=== PATIENT | male | born 1990 ===

== ENCOUNTER 2017-02-10 18:42 | Inpatient (IN) | payer BC, OTHER ==
[~2017-02-10] VITALS: Ht 182.9 cm; Wt 117.9 kg
--- NOTE | 2017-02-11 00:07 | NUR ---
PRN MAALOX Pt came back from smoke break, c/o heartburn. Administered prn Maalox 30 ml prn PO as ordered. Will continue to monitor Addendum: 02/12/17 at 0610 by PEEWEE JIMÉNEZ RN wrong date; intended to be 02/12/17
--- NOTE | 2017-02-11 16:40 | NUR ---
Admission note Pt was admitted to [facility] and given tour by staff. Pt oriented to unit. VS were as follows: BP: 142/90 HR: 83 T: 98.2 R: 16 SpO2: 98% on RA. Pain 10/10 generalized body aches. COWS 15, CIWA 17. Pt unable to provide urine. Pt has NKDA, full code, regular diet. Pt states that he has a PMH of seizures with withdrawal, anxiety, severe depression, pt states that he has been told that he has high blood pressure and is a prediabetic, but does not have any medical treatment. Pt states that he has suicidal thoughts and was placed on a 1:1 for safety, denies having an active plan at this time. Pt states that he has had 10-20 seizures from withdrawal. Pt states that he takes lyrica 200mg PO BID, last taken this morning, and zoloft 200mg PO daily, last taken this morning. Pt uses the following substances: smokes cigarettes-1/2-1 pack a day since the age of 14. Xanax- 20-80mg PO daily since the age of 11, last took 10mg at 0100 today. Heroin- 1-2 G daily, via IV or snorting, been using since the age of 19, last use was 0.5G today at 0100. Fentanyl- uses a 50 or 75mcg patch, smokes it when its available, has been using them since the for "about a year", last use "about a month ago" W18- "the strongest opiate there is"- takes 1 pill PO when its available, last use was about 3 weeks ago, has been using them for about a year. oxycodone- has been using them since he was in 6th grade "when available" takes 1-2 tabs of 80mg tabs, last use was 1 month ago. percocet- has been using them since he was in 6th grade "when available", last used 02/10/17 -1 5mg tab. Marijuana- smokes "an 8 ball daily" since the age of 11. Pt states that he does not want the flu/pna shot. Consented to the HIV test. States his PCP is Dr Thom Donnelly in his home town in [place]. Pt states that he was at [facility] for 60 days, but was only sober for 43 of the days, and relapsed immediately upon discharge from the facility. Pt states that he started the program in August 2016. Dr Smith is aware of the pt's admission, COWS/CIWA scores and states he will place the pt on a subutex and phenobarbital taper. Dr Dodd is aware of the pt's SI, NNO at this time. Will continue to monitor the pt and administer medication as ordered.
[2017-02-11] MEDS ORDERED: PREG200C PO (17:30)
[2017-02-11] MEDS ORDERED: diphenhydrAMINE 50 MG CAPSULE PO PRN (17:30)
[2017-02-11] MEDS ORDERED: MIRALAX 17 GM POWD.PACK PO PRN (17:30)
[2017-02-11] MEDS ORDERED: SERT100T PO (17:30)
[2017-02-11] MEDS ORDERED: DICYCLOMINE HCL 20 MG TABLET PO PRN (17:30)
[2017-02-11] MEDS ORDERED: MAGNESIUM HYDROXIDE 30 ML LIQUID UDC PO PRN (17:30)
[2017-02-11] MEDS ORDERED: DIAZEPAM 10 MG TABLET PO PRN ×2 (17:30)
[2017-02-11] MEDS ORDERED: PROMETHAZINE HCL 25 MG/1 ML VIAL IM PRN (17:30)
[2017-02-11] MEDS ORDERED: LOPERAMIDE HCL 2 MG CAPSULE PO PRN ×2 (17:30)
[2017-02-11] MEDS ORDERED: LORAZEPAM 2 MG/1 ML VIAL IM PRN (17:30)
[2017-02-11] MEDS ORDERED: ACETAMINOPHEN 325 MG TABLET PO PRN (17:30)
[2017-02-11 17:35] VITALS: BP 142/95
[2017-02-11 18:33] LABS: BASOPHILS # (AUTO) 0.1 K/uL (0.0-0.2); BASOPHILS % (AUTO) 0.7 % (0.0-2.0); EOSINOPHILS # (AUTO) 0.1 K/uL (0.0-0.7); EOSINOPHILS % (AUTO) 1.2 % (0.0-7.0); HEMATOCRIT 46.7 % (40.0-50.0); HEMOGLOBIN 15.2 g/dL (14.0-18.0); LYMPHOCYTES # (AUTO) 3.7 K/uL (0.8-4.8); LYMPHOCYTES % (AUTO) 32.7 % (20.5-51.5); MEAN CORPUSCULAR HEMOGLOBIN 27.5 uug (27.0-31.0); MEAN CORPUSCULAR HGB CONC 33 g/dL (32.0-37.0); MEAN CORPUSCULAR VOLUME 84.5 fL (82.0-92.0); MONOCYTES # (AUTO) 0.7 K/uL (0.1-1.30); MONOCYTES % (AUTO) 5.9 % (0.0-11.0); NEUTROPHILS # (AUTO) 6.6 K/uL (1.8-8.9); NEUTROPHILS % (AUTO) 59.5 % (38.5-71.5); PLATELET COUNT (AUTO) 304 K/uL (150-450); RED BLOOD CELL COUNT(AUTO) 5.53 MIL/uL (4.70-6.10); WHITE BLOOD COUNT (AUTO) 11.2 K/uL (4.0-11.2)
[2017-02-11 18:35] LABS: ETHANOL < 3 MG/DL (0-0)
[2017-02-11 18:39] LABS: ALANINE AMINOTRANSFERASE 44 U/L (16-63); ALBUMIN 4.3 g/dL (3.4-5.0); ALKALINE PHOSPHATASE 82 U/L (50-136); ASPARTATE AMINOTRANSFERASE 21 U/L (15-37); BILIRUBIN,TOTAL 0.4 mg/dL (0.2-1.0); CALCIUM 9.7 mg/dL (8.5-10.1); CARBON DIOXIDE 30 mmol/L (21-32); CHLORIDE 100 mmol/L (98-107); CREATININE 1.3 mg/dL (0.6-1.3); GFR 68 mL/min (>60); GLUCOSE 136 mg/dL (74-106); MAGNESIUM 1.8 mg/dL (1.8-2.4); POTASSIUM 3.6 mmol/L (3.5-5.1); SODIUM SERUM 141 mmol/L (136-145); TOTAL PROTEIN, SERUM 8.1 g/dL (6.4-8.2); UREA NITROGEN, BLOOD 14 mg/dL (7-18)
[2017-02-11] MEDS ORDERED: KETOROLAC TROMETHAMINE 30 MG INJ IM PRN (18:45)
[2017-02-11 18:48] LABS: THYROID STIMULATING HORMONE 0.504 mIU/mL (0.358-3.740)
[2017-02-11] MEDS ORDERED: PHENOBARBITAL 60 MG TABLET PO SCH ×2 (19:00)
[2017-02-11] MEDS ORDERED: PHENOBARBITAL 32.4 MG TABLET PO ONE (19:00)
[2017-02-11] MEDS: BUPRENORPHINE HCL 2 MG TAB.SUBL SL PRN (19:06)
--- NOTE | 2017-02-11 19:09 | NUR ---
End of shift note Pt was admitted for opiate and benzo dependence. Pt has a PMH of seizures from withdrawal, depression and SI. Pt is full code, regular diet, continues on 1:1 for SI. Pt started on phenobarb taper, given PRN subutex for COWS of 15. 1:1 sitter at bedside. Pt was able to provide urine for UDS, and urine was sent down. Pt is comfortable at this time. Has no complaints. SBAR report given to night stocker nurse. All needs addressed at this time.
--- NOTE | 2017-02-11 19:30 | NUR ---
START OF SHIFT NOTE Received report from day shift nurse. Pt is 26 y o male, admitted on 02/11/17 for BZO (xanax 20-80 mg PO daily), Opioids (heroin 1-2 g daily). Pt also reported taking fentanyl 50-75 mg, w18 - 1 tab, oxycodone 80 mg, and percocet unknown dose - all whenever available. Pt placed on Phenobarbital taper started 02/11/17; prn Subutex and valium also available based on withdrawal s/s. Pt in bed, aaox4. Pt reports anxiety, but able to sit still, reports chills, stomach cramps, skin warm with minimal sweat; pt reports body aches 4/10 at this time; noted increased tearing. Pupils PERRLA 5 mm bilat. Skin intact. No tremors noted; pt reports minimal tingling in fingers bilat; radial pulses strong bilat, cap refill <3 sec. Per day shift nurse, pt just received Phenobarbital an Subutex, will re-evaluate in 40 min. Lung sounds clear, heart rate regular. Bowel sounds active x 4, pt denies n/v. Pt denies urinary problems. PMH of depression, withdrawal seizures. Pt on fall and seizure precautions. Side rails up x 2, bed locked in lowest position, call light within reach. D/t depression, pt verbalizes "I am not satisfied with my life", pt reports dissatisfaction with his life and unwillingness to continue to live; denies active suicidal thoughts; pt denies having a plan to end his life. Pt is on 1:1 for safety. Will continue with plan of care.
[2017-02-11 20:00] VITALS: BP 131/78
[2017-02-11 20:27] LABS: *AMPHETAMINE, URINE NEGATIVE (NEGATIVE); *BARBITURATE, URINE NEGATIVE (NEGATIVE); *CANNABINOID, URINE POSITIVE (NEGATIVE); *COCCAINE, URINE NEGATIVE (NEGATIVE); *OPIATE, URINE POSITIVE (NEGATIVE); *PHENCYCLIDINE SCREEN,URINE NEGATIVE (NEGATIVE)
[2017-02-11] MEDS ORDERED: GABAPENTIN 300 MG CAPSULE PO SCH (21:00)
[2017-02-11 21:42] LABS: HIV-1 p24 ANTIGEN NON REACTIVE (NONREACTIVE); HIV-1/2 ANTIBODY NON REACTIVE (NONREACTIVE)
[2017-02-11] MEDS: ONDANSETRON ODT 4 MG TAB.RAPDIS SL PRN (22:13)
--- NOTE | 2017-02-11 22:13 | NUR ---
PRN Zofran Pt c/o nausea and requested for PRN Zofran. Medication given and tolerated well. Will reassess within 1 HR. Will continue to monitor.
--- NOTE | 2017-02-11 23:00 | NUR ---
REASSESSMENT Pt reports nausea subsided
[2017-02-11] MEDS: DIAZEPAM 5 MG TABLET PO PRN (23:46)
--- NOTE | 2017-02-11 23:46 | NUR ---
PRN VALIUM 5 MG Pt c/o anxiety, noted moderate sweat; pt c/o minimal body aches, reports mild tingling of extremities. CIWA =7, COWS = 7. Administered prn Valium 5 mg PO prn as ordered. Safety precautions in place; will continue to monitor
[2017-02-12] VITALS: BP 125/80
[2017-02-12] MEDS: MAG HYDROX/AL HYDROX/SIMETH 30 ML LIQUID UDC PO PRN ×2 (00:07→21:31)
--- NOTE | 2017-02-12 00:07 | NUR ---
PRN MAALOX Pt came back from smoke break, c/o heartburn. Administered prn Maalox 30 ml prn PO as ordered. Will continue to monitor
--- NOTE | 2017-02-12 00:45 | NUR ---
REASSESSMENT Pt in bed, reports anxiety is still present, but very mild; pt denies tingling, no tremors present; reports 2/10 body aches; deneis stomach discomfort/ heartburn. COWS 5, CIWA 3
[2017-02-12] MEDS: METHOCARBAMOL 750 MG TABLET PO PRN ×2 (03:41→17:17)
[2017-02-12] MEDS: DIAZEPAM 5 MG TABLET PO PRN (03:41)
--- NOTE | 2017-02-12 03:41 | NUR ---
PRN VALIUM AND ROBAXIN Pt c/o anxiety, tingling, sweats, chills, body aches 05/07. COWS =9, CIWA = 6; administered prn Valium 5 mg PO and Robaxin 750 mg prn PO for body aches. Fall and seizure precautions in place, will continue to monitor
[2017-02-12 04:00] VITALS: BP 117/70
--- NOTE | 2017-02-12 04:30 | NUR ---
REASSESSMENT Pt in bed, awaiting for RT. Pt reports "minimal" anxiety, reports body aches decreased to 1/10; no tingling reported, mild sweating still present. COWS 4, CIWA 3. Will continue to monitor
--- NOTE | 2017-02-12 04:49 | NUR ---
PT CALLING FOR USE OF CPAP MACHINE @ 04:10 , SET / UP WITH PT LEAK TEST,DONE; PT ON ROOM AIR, SETTINGS, CPAP 4CM, RR12, SPONT. VT 545ML, APPROX. WITH FULL MASK IN PLACE, ALL ALARMS OK AND SET, PT DOING WELL AT THIS TIME. Tyler BOYD RCP Addendum: 02/12/17 at 0452 by DIANN BOYD RT Amended: Links added.
--- NOTE | 2017-02-12 07:30 | NUR ---
START OF SHIFT Pt 26 y/o male admitted for benzo and opiate dependence. Pt received in room with eyes closed resting, but easily arousable to name. Perrla. Skin warm and slightly moist to touch. Respirations even and unlabored. Pt with sitter 1:1 for safety. It was reported that pt slept for 6 hours last night. Pt will start a 7 day phenobarb taper today. Bed on lowest position with side rails x 2 up for safety. Call light within reach. No distress noted at this time.
--- NOTE | 2017-02-12 07:34 | NUR ---
END OF SHIFT NOTE Pt is 26 y o male, admitted on 02/11/17 for BZO (xanax 20-80 mg PO daily), Opioids (heroin 1-2 g daily). Pt also reported taking fentanyl 50-75 mg, w18 - 1 tab, oxycodone 80 mg, and percocet unknown dose - all whenever available. Pt placed on Phenobarbital taper started 02/11/17; prn Subutex and valium also available based on withdrawal s/s. Pt withdrawal s/s included chills, tearing, dilated pupils, stomach cramps, nausea, anxiety. PRN meds were given and documented in separate notes; withdrawal s/s were managed with prn Valium 5 mg given x 2, both times was effective: CIWA scores decreased, as documented in corresponding notes. Pt received Zofran for nausea and Maalox for heartburn, both were effective; received Robaxin for muscle aches . Pt has CPAP machine for nighttime. VSS. Last COWS 4, CIWA 3 at 0430 after Valium and Robaxin administration. PMH of depression, withdrawal seizures. Pt on fall and seizure precautions. Pt is on 1:1 for suicidal precautions, no active suicidal ideations verbalized throughout the shift. Pt sleeping, RR unlabored. Report endorsed to day shift.
[2017-02-12 08:00] VITALS: BP 113/57
[2017-02-12] MEDS ORDERED: PHENOBARBITAL 60 MG TABLET PO SCH (09:00)
[2017-02-12] MEDS ORDERED: TUBERCULIN,PURIF.PROT.DERIV. 5 TU/0.1 ML TEST ID ONE (09:00)
[2017-02-12] MEDS: MULTIVITAMINS,THERAPEUTIC TABLET PO SCH (10:09)
[2017-02-12] MEDS: PHENOBARBITAL 32.4 MG TABLET PO SCH ×4 (10:10→20:19)
[2017-02-12] MEDS: PREGABALIN 100 MG CAPSULE PO SCH ×2 (10:10→17:17)
[2017-02-12] MEDS: PHENOBARBITAL 60 MG TABLET PO SCH ×4 (10:10→20:19)
[2017-02-12] MEDS: BUPRENORPHINE HCL 2 MG TAB.SUBL SL PRN (10:22)
[2017-02-12 12:00] VITALS: BP 113/57
[2017-02-12] MEDS ORDERED: PHENOBARBITAL 60 MG TABLET PO ONE (13:00)
[2017-02-12] MEDS: BUPRENORPHINE HCL 2 MG TAB.SUBL SL SCH ×3 (13:33→20:20)
--- NOTE | 2017-02-12 15:00 | NUR ---
NSG ENTRY Pt denies any SI when asked.
[2017-02-12 16:00] VITALS: BP 131/88
[2017-02-12] MEDS: SERTRALINE HCL 100 MG TABLET PO SCH ×2 (16:07→20:19)
[2017-02-12] MEDS: ONDANSETRON ODT 4 MG TAB.RAPDIS SL PRN (16:14)
--- NOTE | 2017-02-12 16:15 | NUR ---
PRN Pt with c/o nausea. Zofran po prn per MD order given and tolerated well.
--- NOTE | 2017-02-12 17:17 | NUR ---
PRN Pt with c/o body aches 6/10 generalized. Robaxin po prn per MD order given and tolerated well.
[2017-02-12] MEDS ORDERED: DIAZEPAM 10 MG TABLET PO PRN ×2 (17:45)
[2017-02-12] MEDS ORDERED: DIAZEPAM 5 MG TABLET PO PRN (17:45)
--- NOTE | 2017-02-12 18:43 | NUR ---
END OF SHIFT Pt 26 y/o male admitted for benzo/ opiate dependence. Pt alert and oriented to name, place, and time. Perrla. Skin warm and moist to touch. Respirations even and unlabored. Bilateral hand tremors noted. Pt appears flushed at times throughout the day. Pt was seen by Dr. Smith today. Pt medication compliant and tolerated well. No ASE noted. Bed on lowest position with side rails x2 up for safety. Call light within reach. No distress noted at this time.
--- NOTE | 2017-02-12 19:10 | NUR ---
Start of Shift Patient Received. Patient is in his room, sleeping but easily arousable to verbal stimuli. Breathing even and non labored. No signs of pain or discomfort noted. Patient is a 26 year old male, admitted on 02/11/17 for Benzo and Opiate Dependence, under the care of Dr. Smith. Patient is currently receiving a 7 day Phenobarbital and 5 day Subutex taper. Patient verbalizes no known allergies, wishes to be full code, following a regular diet, skin intact, placed on fall and seizure precautions. Past Medical History of Surgery to right shoulder x3, Depression, Seizure from withdrawal. Patient continues on CPAP and tolerating well. Per endorsement, patient was given PRN Robaxin, Zofran, and Phenobarbital 30mg x1. Last COWS noted 10. Last CIWA noted 10. Patient was removed from 1:1 for suicidal Ideals. Patient currently denies suicidal ideations. All needs attended to promptly. Will continue plan of care as ordered.
[2017-02-12 20:06] VITALS: BP 129/82
[2017-02-12] MEDS: QUETIAPINE FUMARATE 25 MG TABLET PO SCH (20:20)
[2017-02-12] MEDS ORDERED: QUETIAPINE FUMARATE 25 MG TABLET ONE (20:26)
--- NOTE | 2017-02-12 21:35 | NUR ---
PRN Medication Administration Patient verbalized increase heart burn. PRN Mylanta administered. Patient able to tolerate well. Will continue to monitor for effectiveness.
[2017-02-13] VITALS (7 sets, daily range): BP systolic 124–143; BP diastolic 72–94
--- NOTE | 2017-02-13 07:07 | NUR ---
End of Shift Patient is in his room, sleeping but easily arousable to verbal stimuli. Breathing even and non labored. No signs of pain or discomfort noted. Patient is a 26 year old male, admitted on 02/11/17 for Benzo and Opiate Dependence, under the care of Dr. Smith. Patient is currently receiving a 7 day Phenobarbital and 5 day Subutex taper. Patient verbalizes no known allergies, wishes to be full code, following a regular diet, skin intact, placed on fall and seizure precautions. Past Medical History of Surgery to right shoulder x3, Depression, Seizure from withdrawal. Patient continues on CPAP and tolerating well. Patient was given PRN Mylanta for heartburn and medication noted to be effective. Patient currently denies suicidal ideations. Last COWS noted at 3 and last CIWA noted at 2. All needs attended to promptly. Will endorse continue plan of care as ordered.
--- NOTE | 2017-02-13 07:30 | NUR ---
START OF SHIFT NOTE Received report from night nurse, 26 year old male, admitted on 02/11/17 for Benzo and Opiate Dependence. NKA/Regular diet/Full code. Patient cont with 7 day Phenobarbital and 5 day Subutex taper. Past Medical History of Surgery to right shoulder x3, Depression, Seizure from withdrawal. Pt continues on CPAP and tolerating well. Per endorsement pt received PRN Mylanta for heartburn effective. Last COWS-3, CIWA-2. Slept for 6 hours. Received pt in his room sleeping in stable condition, responsive to verbal and tactile stimuli. CPAP intact no s/s of desaturation noted. Safety measures in place, call light within reach. Will cont to monitor.
[2017-02-13] MEDS: PREGABALIN 100 MG CAPSULE PO SCH ×2 (08:50→20:41)
[2017-02-13] MEDS: SERTRALINE HCL 100 MG TABLET PO SCH ×2 (08:50→20:42)
[2017-02-13] MEDS: PHENOBARBITAL 60 MG TABLET PO SCH ×4 (08:50→20:41)
[2017-02-13] MEDS: MULTIVITAMINS,THERAPEUTIC TABLET PO SCH (08:50)
[2017-02-13] MEDS: BUPRENORPHINE HCL 2 MG TAB.SUBL SL SCH ×4 (08:55→20:42)
--- NOTE | 2017-02-13 12:50 | NUR ---
PT AT THIS TIME IS SLEEPING IN BED PER RN REQUEST PLACE PT ON CPAP. PT AT THIS TIME WAS WOKEN UP TO PLACE ON CPAP, PT REFUSED CPAP AT THIS TIME DUE TO DRY MOUTH AND THROAT. PT KEEP FALLING IN AND AOUT OF SLEEP SPO2 ON ROOM AIR <91%. PER RN PT WAS PLACE ON NC 3LPM VIA NC. PT AT THIS TIME IS TOLERATING WELL SPO2 97% AND REMAINS SLEEPING WITH NO DISTRESS. RN WILL MONITOR PT SPO2. RT WILL CONTINUE TO MONITOR PT THROUGHOUT SHIFT. RT INFORMED RN REGARDING O2 INITIAL ORDER.
[2017-02-13] MEDS ORDERED: DIAZEPAM 10 MG TABLET PO PRN ×2 (13:15)
[2017-02-13] MEDS ORDERED: DIAZEPAM 5 MG TABLET PO PRN (13:15)
--- NOTE | 2017-02-13 19:05 | NUR ---
Start of Shift Patient Received. Patient is in his room, sleeping but easily arousable to verbal stimuli. Breathing even and non labored. No signs of pain or discomfort noted. Patient is a 26 year old male, admited on 02/11/17 for Benzo and Opiate Dependence, under the care of Dr. Smith. Patient is currently receiving a 7 day Phenobarbital and 5 day Subutex taper. Patient verbalizes no known allergies, wishes to be full code, following a regular diet, skin intact, placed on fall and seizure precautions. Past Medical History of Surgery to right shoulder x3, Depression, Seizure from withdrawal. Patient continues on CPAP and tolerating well. Per endorsement, Patient was noted with an episode of desaturation while sleeping. New order of O2 via Nasal Canula at 3 liters. No PRN Medications administered. COWS noted to be 5 and CIWA noted to be 4. Patient currently denies suicidal ideations. All needs attended to promptly. Will continue plan of care as ordered.
--- NOTE | 2017-02-13 19:13 | NUR ---
END OF SHIFT NOTE Gave report to night 26 year old male, admitted on 02/11/17 for Benzo and Opiate Dependence. NKA/Regular diet/Full code. Patient cont with 7 day Phenobarbital and 5 day Subutex taper. Past Medical History of Surgery to right shoulder x3, Depression, Seizure from withdrawal. Pt continues on CPAP and tolerating well. During shift pt did not receive any PRN medication. Vital signs remained stable. Pt's total intake 2572ml, voided x3, with x1 BM. Safety measures in place, call light within reach. Pt endorse to night nurse in stable condition.
--- NOTE | 2017-02-13 20:00 | NUR ---
MD Communication/New Orders Patient is noted in bed sleeping. Nasal Cannula noted to be taken off by patient. Vitals rendered and Oxygen noted to be 89% on Room air. Patient noted with order to be placed CPAP while sleeping during the day. Clarified ordered with MD with New order for Oxygen 2liters via NC. Patient placed on Oxygen and tolerating well. O2 Saturation noted at 95% and patient tolerating well. Will continue to monitor.
[2017-02-13] MEDS: PREGABALIN 25 MG CAPSULE PO SCH (20:41)
[2017-02-13] MEDS: QUETIAPINE FUMARATE 25 MG TABLET PO SCH (20:42)
[2017-02-13] MEDS ORDERED: PREGABALIN 100 MG CAPSULE PO SCH (21:00)
[2017-02-13] MEDS: METHOCARBAMOL 750 MG TABLET PO PRN (23:45)
[2017-02-13] MEDS: CLONIDINE HCL 0.1 MG TABLET PO PRN (23:45)
--- NOTE | 2017-02-13 23:45 | NUR ---
PRN Medication Administration Patient verbalizing increased anxiety, agitation, and back spasms. PRN Clonidine and Robaxin administered. Will continue to monitor.
--- NOTE | 2017-02-14 | NUR ---
placed patient on cpap 4 fio2 35% . pt tolerating current settings at this time. pt leak 8. alarms working well and audible.no distress noted at this time. spo2 98% . will continue to monitor.
[2017-02-14 00:49] VITALS: BP 129/87
[2017-02-14 04:03] VITALS: BP 127/91
--- NOTE | 2017-02-14 07:15 | NUR ---
End of Shift Patient is in his room, awake, alert and verbally responsive. Breathing even and non labored. No signs of pain or discomfort noted. Patient is a 26 year old male, admitted on 02/11/17 for Benzo and Opiate Dependence, under the care of Dr. Smith. Patient is currently receiving a 7 day Phenobarbital and 5 day Subutex taper. Patient verbalizes no known allergies, wishes to be full code, following a regular diet, skin intact, placed on fall and seizure precautions. Past Medical History of Surgery to right shoulder x3, Depression, Seizure from withdrawal. Patient tolerated CPAP well throughout the night. Patient was given PRN Robaxin and Clonidine 0.1mg and medication noted to be effective. Patient currently denies suicidal ideations. Last COWS noted at 2 and last CIWA noted at 0. All needs attended to promptly. Will endorse continue plan of care as ordered.
--- NOTE | 2017-02-14 07:16 | NUR ---
Start Of Shift Patient is a 26 year old male, admitted on 02/11/17 for Benzo and Opiate Dependence. Pt is full code regular diet on fall and seizure precautions, denies any food or drug allergies. Patient is currently receiving a 7 day Phenobarbital and 5 day Subutex taper tolerating well. Skin intact. Past Medical History of Surgery to right shoulder x3, Depression, Seizure d/t withdrawal. Patient is on CPAP during nights and O2 2L/min via NC during the day for SPO2 less than 90%. Patient was given PRN Robaxin 750mg and Clonidine 0.1mg which were effective per adjustment clerk nurse. Patient currently denies suicidal ideations. Last COWS was a 2 and last CIWA was a 0 taken at 1999. Pt slept a total of 7 hours last night. All safety measures in place, call light within reach, bed in lowest locked position, will continue to monitor and provide support.
[2017-02-14 08:00] VITALS: BP 139/76
[2017-02-14] MEDS ORDERED: BUPRENORPHINE HCL 2 MG TAB.SUBL SL SCH (09:00)
[2017-02-14] MEDS: PHENOBARBITAL 60 MG TABLET PO SCH ×3 (09:25→21:00)
[2017-02-14] MEDS: SERTRALINE HCL 100 MG TABLET PO SCH ×2 (09:25→23:51)
[2017-02-14] MEDS: PREGABALIN 25 MG CAPSULE PO SCH ×2 (09:25→23:51)
[2017-02-14] MEDS: MULTIVITAMINS,THERAPEUTIC TABLET PO SCH (09:26)
[2017-02-14] MEDS: PREGABALIN 100 MG CAPSULE PO SCH ×2 (09:26→23:51)
[2017-02-14] MEDS ORDERED: BACLOFEN 10 MG TABLET PO PRN (11:15)
[2017-02-14] MEDS: HYDROXYZINE PAMOATE 25 MG CAPSULE PO PRN (11:57)
--- NOTE | 2017-02-14 11:57 | NUR ---
PRN MEDICATION Pt c/o Anxiety presented with agitation and restlessness pt also complained of generalized muscle pain rating it 4/10 requested something for relief, non-pharmacological techniques interventions provided x3 and were not effective. PRN Vistaril 50mg, and Baclofen 10mg administered PO, educated pt about s/e of medication and when to contact nurse. all needs met, all safety measures in place, will continue to monitor.
[2017-02-14 12:00] VITALS: BP 136/78
--- NOTE | 2017-02-14 12:57 | NUR ---
PRN REASSESSMENT Medication effective pt reported a decrease in pain to 3/10 and decreased anxiety. all needs met, all safety measures in place will continue to monitor.
[2017-02-14] MEDS: DICYCLOMINE HCL 20 MG TABLET PO SCH ×2 (15:14→23:51)
[2017-02-14] MEDS: BUPRENORPHINE HCL 2 MG TAB.SUBL SL SCH ×2 (15:15→21:00)
[2017-02-14 16:00] VITALS: BP 131/79
--- NOTE | 2017-02-14 19:13 | NUR ---
End Of Shift Patient is a 26 year old male, admitted on 02/11/17 for Benzo and Opiate Dependence. Pt is full code regular diet on fall and seizure precautions, denies any food or drug allergies. Patient is currently receiving a 7 day Phenobarbital and 5 day Subutex taper tolerating well. Skin intact. Past Medical History of Surgery to right shoulder x3, Depression, Seizure d/t withdrawal. Patient is on CPAP during nights and O2 2L/min via NC during the day for SPO2 less than 90%. Patient was given PRN Baclofen 10mg and Vistaril 50mg which were effective. Patient currently denies suicidal ideations. Last COWS was a 5 and last CIWA was a 3 taken at 1600. Pt participated in some activities and groups. Pt stated that the medications are working well at controlling the withdrawal symptoms, evidenced by low assessment scores during the day ranging from 7-5 and 5-3. Pt ate all of his meals. Pt remains compliant with the treatment plan. Pts vital signs within normal limits, A/Ox4, denies chest pain. Respirations even unlabored, lungs clear upon auscultation abdomen soft and non- distended. Pt denies nausea, vomiting and diarrhea. Pt total fluid intake was 2250ml with 2 voids and 1 stool. Safety measures in place, call light within reach. All pertinent information discussed with operation shift supervisor, endorsement given to operation shift supervisor nurse.
[2017-02-14] MEDS ORDERED: BUPRENORPHINE HCL 2 MG TAB.SUBL SL ONE (20:00)
[2017-02-14 20:01] VITALS: BP 118/72
--- NOTE | 2017-02-14 22:00 | NUR ---
Scheduled Subutex and Phenobarbital Held for sleep Scheduled 4mg Subutex and 60mg Phenobarbital Held for sleep. Pt is resting well in bed with no s/s of distress noted at this time. Respirations even and unlabored. Will continue to monitor.
[2017-02-14] MEDS: QUETIAPINE FUMARATE 25 MG TABLET PO SCH (23:50)
--- NOTE | 2017-02-15 00:08 | NUR ---
One time orders of 4mg Subutex and 60mg phenobarbital administration Pt woke up and presenting with COWS: 10 and CIWA: 8. One time orders obtained from Dr. Salazar for 4mg Subutex and 60mg Phenobarbital. Medications given and tolerated well. Will Reassess within 1 HR. Will continue to monitor.
[2017-02-15] MEDS ORDERED: BUPRENORPHINE HCL 2 MG TAB.SUBL SL ONE ×2 (00:14→00:15)
[2017-02-15] MEDS ORDERED: PHENOBARBITAL 60 MG TABLET PO ONE (00:15)
[2017-02-15] MEDS ORDERED: PHENOBARBITAL 60 MG TABLET ONE (00:15)
[2017-02-15 00:31] VITALS: BP 124/80
--- NOTE | 2017-02-15 01:05 | NUR ---
One time Subutex and Phenobarbital Reassessment Medications effective. No s/s of ASE/distress noted at this time. Respirations even and unlabored. Will continue to monitor.
[2017-02-15 04:23] LABS: HCV AB <0.1 s/co ratio (0.0-0.9); HEPATITIS B CORE AB, IgM Negative (Negative); HEPATITIS B SURFACE AG Negative (Negative)
--- NOTE | 2017-02-15 04:28 | NUR ---
V/S, COWS, and CIWA Refused V/S, COWS, and CIWA Refused. No s/s of distress noted at this time. Respirations even and unlabored. Will continue to monitor.
--- NOTE | 2017-02-15 06:52 | NUR ---
End of shift note Pt is a 26 yo male, A+Ox4, presenting to [facility] for Benzo/Opiate dependence. Pt has NKA, is Full Code status, and is on Regular diet. Pt is on Fall and Seizure precautions. Pt has HX of Right shoulder SX, depression, and Seizure. Pt is on 7 day Phenobarbital taper and 5 day Subutex taper, tolerated well. Pt slept for a total of 8 HRS. Last COWS: 10 and Last CIWA: 8 @0000. No s/s of distress noted at this time. Respirations even and unlabored. Will endorse to day shift nurse.
--- NOTE | 2017-02-15 07:30 | NUR ---
Start of shift note; Received report from night nurse. Patient is a 26 year old male, admitted on 02/11/17 for Benzo and Opiate Dependence. Pt is full code regular diet on fall and seizure precautions, denies any food or drug allergies. Patient is currently receiving a 7 day Phenobarbital and 5 day Subutex taper tolerating well. Skin intact. Patient reported Past Medical History of Surgery to right shoulder x3, Depression, Seizure d/t withdrawal. Patient is on CPAP during nights and O2 2L/min via NC during the day for SPO2 less than 90%. Patient denies suicidal ideations. Last COWS was a 10 and last CIWA was a 8. Pt slept a total of 8 hours last night. All safety measures in place, call light within reach, bed in lowest locked position, will continue to monitor patient.
[2017-02-15 08:00] VITALS: BP 121/88
[2017-02-15] MEDS: SERTRALINE HCL 100 MG TABLET PO SCH ×2 (08:41→21:03)
[2017-02-15] MEDS: PHENOBARBITAL 60 MG TABLET PO SCH ×4 (08:41→21:03)
[2017-02-15] MEDS: PREGABALIN 100 MG CAPSULE PO SCH ×2 (08:41→21:03)
[2017-02-15] MEDS: PREGABALIN 25 MG CAPSULE PO SCH ×2 (08:41→21:03)
[2017-02-15] MEDS: DICYCLOMINE HCL 20 MG TABLET PO SCH ×3 (08:42→21:02)
[2017-02-15] MEDS: MULTIVITAMINS,THERAPEUTIC TABLET PO SCH (08:42)
[2017-02-15] MEDS: BUPRENORPHINE HCL 2 MG TAB.SUBL SL SCH ×3 (08:42→21:03)
[2017-02-15 08:46] LABS: CREATININE 0.9 mg/dL (0.6-1.3); MAGNESIUM 1.8 mg/dL (1.8-2.4); POTASSIUM 4.2 mmol/L (3.5-5.1)
[2017-02-15 09:27] LABS: CALCIUM 6.2 mg/dL (8.5-10.1)
[2017-02-15 10:21] LABS: HEMATOCRIT 37.6 % (40.0-50.0); MEAN CORPUSCULAR VOLUME 83.3 fL (82.0-92.0); PLATELET COUNT (AUTO) 263 K/uL (150-450); RED BLOOD CELL COUNT(AUTO) 4.52 MIL/uL (4.70-6.10); RED CELL DISTRIBUTION WIDTH 12.8 % (11.5-14.5); WHITE BLOOD COUNT (AUTO) 12.3 K/uL (4.0-11.2)
[2017-02-15 10:22] LABS: HEMOGLOBIN 13.1 g/dL (14.0-18.0); MEAN CORPUSCULAR HEMOGLOBIN 30.1 uug (27.0-31.0); MEAN CORPUSCULAR HGB CONC 36 g/dL (32.0-37.0)
[2017-02-15 10:27] LABS: BAND % (MANUAL) 2 % (0-10); EOSINOPHILS % (MANUAL) 2 % (0-8); LYMPHOCYTES % (MANUAL) 15 % (20-40); MONOCYTES % (MANUAL) 4 % (2-10); NEUTROPHILS % (MANUAL) 77 % (42-75); PLATELET ESTIMATE ADEQUATE
[2017-02-15 12:00] VITALS: BP 130/82
[2017-02-15] MEDS ORDERED: DIAZEPAM 5 MG TABLET PO ONE (15:00)
--- NOTE | 2017-02-15 15:00 | NUR ---
New order; ordered One time order of Valium 5mg PO, Patient's current CIWA score is 7, patient appears to be anxious, reported hot and cold flushes and bone and joint aches. Will clsoely monitor patient. Addendum: 02/15/17 at 1544 by TONI HUNT LVN Patient denies hallucinations or suicidal ideations.
[2017-02-15 16:00] VITALS: BP 120/78
--- NOTE | 2017-02-15 16:16 | NUR ---
Re-assessment; Patient is calm and comfortable at this time. Patient 's current CIWA score is 5. Will closely monitor patient.
--- NOTE | 2017-02-15 18:26 | NUR ---
End of shift note; Patient is AOX4.Patient is a 26 year old male, admitted on 02/11/17 for Benzo and Opiate Dependence. Pt is full code regular diet on fall and seizure precautions, denies any food or drug allergies. Patient is currently receiving a 7 day Phenobarbital and 5 day Subutex taper tolerating well. Skin intact. Patient reported Past Medical History of Surgery to right shoulder x3, Depression, Seizure d/t withdrawal. Patient is on CPAP during nights and O2 2L/min via NC during the day for SPO2 less than 90%. Patient denies suicidal ideations. Last COWS was a 5 and last CIWA was a 5. All safety measures in place, call light within reach, bed in lowest locked position. Met all needs.
--- NOTE | 2017-02-15 19:15 | NUR ---
Start of shift note Received report from day shift nurse. Pt is a 26 yo male, A+Ox4, presenting to [facility] for Benzo/Opiate dependence. Pt has NKA, is Full Code status, and is on Regular diet. Pt is on Fall and Seizure precautions. Pt has HX of Right shoulder SX, depression, and Seizure. Pt is on 7 day Phenobarbital taper and 5 day Subutex taper, tolerated well. No s/s of distress noted at this time. Respirations even and unlabored. Will continue to monitor.
[2017-02-15 20:46] VITALS: BP 148/85
[2017-02-15] MEDS: QUETIAPINE FUMARATE 25 MG TABLET PO SCH (21:03)
--- NOTE | 2017-02-16 00:18 | NUR ---
V/S, COWS, and CIWA Refused V/S, COWS, and CIWA Refused. No s/s of distress noted at this time. Respirations even and unlabored. Will continue to monitor.
--- NOTE | 2017-02-16 04:34 | NUR ---
V/S, COWS, and CIWA Refused V/S, COWS, and CIWA Refused. No s/s of distress noted at this time. Respirations even and unlabored. Will continue to monitor.
--- NOTE | 2017-02-16 07:04 | NUR ---
End of shift note Pt is a 59 yo male, A+Ox4, presenting to [facility] for Opiate dependence. Pt has NKA, is Full Code status, and on Regular diet. Pt is on Fall and Seizure precautions. Pt has HX of HTN, Anxiety, Depression, Anemia, Hepatitis, Renal stones, and Hard of hearing. Pt is on 4 day Valium and Subutex tapers to start today. Pt slept for a total of 5 HRS. Last COWS: 2 and Last CIWA: 1 @1999. No s/s of distress noted at this time. Respirations even and unlabored. Will endorse to day shift nurse. Addendum: 02/17/17 at 0712 by DAVID KATHLEEN LVN error End of shift note Pt is a 26 yo male, A+Ox4, presenting to [facility] for Benzo/Opiate dependence. Pt has NKA, is Full Code status, and is on Regular diet. Pt is on Fall and Seizure precautions. Pt has HX of Right shoulder SX, depression, and Seizure. Pt is on 7 day Phenobarbital taper and 5 day Subutex taper, tolerated well. Pt slept for a total of 5 HRS. Last COWS: 2 and Last CIWA: 1 @0000. No s/s of distress noted at this time. Respirations even and unlabored. Will endorse to day shift nurse.
--- NOTE | 2017-02-16 07:38 | NUR ---
Start of shift note; Received report from night nurse. Patient is a 26 year old male, admitted on 02/11/17 for Benzo and Opiate Dependence. Pt is full code regular diet on fall and seizure precautions, denies any food or drug allergies. Patient is currently receiving a 7 day Phenobarbital and 5 day Subutex taper tolerating well. Skin intact. Patient reported Past Medical History of Surgery to right shoulder x3, Depression, Seizure d/t withdrawal. Patient is on CPAP during nights and O2 2L/min via NC during the day for SPO2 less than 90%. Patient denies suicidal ideations. Last COWS was a 8 and last CIWA was a 6. Pt slept a total of 8 hours last night. All safety measures in place, call light within reach, bed in lowest locked position, will continue to monitor patient.
[2017-02-16 07:49] LABS: HEMATOCRIT 37.4 % (40.0-50.0); MEAN CORPUSCULAR VOLUME 84.1 fL (82.0-92.0); PLATELET COUNT (AUTO) 229 K/uL (150-450); RED BLOOD CELL COUNT(AUTO) 4.45 MIL/uL (4.70-6.10); RED CELL DISTRIBUTION WIDTH 12.9 % (11.5-14.5); WHITE BLOOD COUNT (AUTO) 6.6 K/uL (4.0-11.2)
[2017-02-16 08:00] VITALS: BP 128/85
[2017-02-16 08:26] LABS: HEMOGLOBIN 13.6 g/dL (14.0-18.0)
[2017-02-16 08:27] LABS: MEAN CORPUSCULAR HEMOGLOBIN 30.2 uug (27.0-31.0); MEAN CORPUSCULAR HGB CONC 36 g/dL (32.0-37.0)
[2017-02-16 08:44] LABS: FOLIC ACID 9.7 NG/ML (8.6-58.9)
[2017-02-16] MEDS ORDERED: BUPRENORPHINE HCL 2 MG TAB.SUBL SL SCH (09:00)
[2017-02-16] MEDS: DICYCLOMINE HCL 20 MG TABLET PO SCH ×3 (09:01→21:56)
[2017-02-16] MEDS: PREGABALIN 25 MG CAPSULE PO SCH ×2 (09:01→21:56)
[2017-02-16] MEDS: SERTRALINE HCL 100 MG TABLET PO SCH ×2 (09:01→21:56)
[2017-02-16] MEDS: MULTIVITAMINS,THERAPEUTIC TABLET PO SCH (09:01)
[2017-02-16] MEDS: PREGABALIN 100 MG CAPSULE PO SCH ×2 (09:01→21:56)
[2017-02-16] MEDS: PHENOBARBITAL 60 MG TABLET PO SCH ×3 (09:02→21:56)
[2017-02-16 11:54] LABS: EOSINOPHILS % (MANUAL) 2 % (0-8); LYMPHOCYTES % (MANUAL) 44 % (20-40); MONOCYTES % (MANUAL) 10 % (2-10); NEUTROPHILS % (MANUAL) 44 % (42-75)
[2017-02-16 11:56] LABS: PLATELET ESTIMATE ADEQUATE
[2017-02-16 12:00] VITALS: BP 138/79
[2017-02-16] MEDS: HYDROXYZINE PAMOATE 25 MG CAPSULE PO PRN (14:11)
[2017-02-16] MEDS: BACLOFEN 10 MG TABLET PO PRN (14:12)
--- NOTE | 2017-02-16 14:12 | NUR ---
PRN medication; Patient is complaining of muscle aches, restless legs and anxiety. Patient noted to be pacing back and forth in the room. PRN Baclofen 20mg PO and PRN Vistaril 50mg PO given as ordered. Will continue to monitor patient.
--- NOTE | 2017-02-16 15:15 | NUR ---
Re-assessment; PRN medications are effective. Patient appears calm and comfortable at this time able to ambulate without difficulty.
[2017-02-16 16:00] VITALS: BP 140/88
[2017-02-16] MEDS: BUPRENORPHINE HCL 2 MG TAB.SUBL SL SCH ×2 (16:18→21:56)
[2017-02-16 16:40] LABS: CALCIUM 8.5 mg/dL (8.5-10.1); CREATININE 0.8 mg/dL (0.6-1.3); MAGNESIUM 1.7 mg/dL (1.8-2.4)
[2017-02-16] MEDS ORDERED: MAGNESIUM OXIDE 400 MG TABLET PO ONE (17:00)
--- NOTE | 2017-02-16 18:01 | NUR ---
Magnesium; Patient's magnesium level is 1.7, MD notified. ordered 400mg Mag-ox one time order PO. Order carried out and given.
--- NOTE | 2017-02-16 19:15 | NUR ---
Start of shift note Received report from day shift nurse. Pt is a 26 yo male, A+Ox4, presenting to [facility] for Benzo/Opiate dependence. Pt has NKA, is Full Code status, and is on Regular diet. Pt is on Fall and Seizure precautions. Pt has HX of Right shoulder SX, depression, and Seizure. Pt is on 7 day Phenobarbital taper and 5 day Subutex taper, tolerated well. No s/s of distress noted at this time. Respirations even and unlabored. Will continue to monitor.
[2017-02-16 20:11] VITALS: BP 138/77
[2017-02-16] MEDS: QUETIAPINE FUMARATE 25 MG TABLET PO SCH (21:56)
--- NOTE | 2017-02-16 23:55 | NUR ---
Pt placed on CPAP at this time per RN request. Settings are CPAP 4, FIO2-35%. No resp. distress noted. Pt to be monitored throughout the shift. V60 alarm parametsrs have been checked and remain audible.
--- NOTE | 2017-02-17 00:15 | NUR ---
V/S, COWS, and CIWA Refused V/S, COWS, and CIWA Refused. No s/s of distress noted at this time. Respirations even and unlabored. Will continue to monitor.
--- NOTE | 2017-02-17 04:38 | NUR ---
V/S, COWS, and CIWA Refused V/S, COWS, and CIWA Refused. No s/s of distress noted at this time. Respirations even and unlabored. Will continue to monitor.
--- NOTE | 2017-02-17 07:14 | NUR ---
End of shift note Pt is a 26 yo male, A+Ox4, presenting to [facility] for Benzo/Opiate dependence. Pt has NKA, is Full Code status, and is on Regular diet. Pt is on Fall and Seizure precautions. Pt has HX of Right shoulder SX, depression, and Seizure. Pt is on 7 day Phenobarbital taper and 5 day Subutex taper, tolerated well. Pt slept for a total of 6 HRS. Last COWS: 4 and Last CIWA: 2 @1999. No s/s of distress noted at this time. Respirations even and unlabored. Will endorse to day shift nurse.
--- NOTE | 2017-02-17 07:41 | NUR ---
BEGINNING OF SHIFT Patient endorsement report received from steel wheel engraver nurse, all pertinent information discussed. patient is a 26 year old male admitted on 02/11/2017 with admitting Dx: bzo/opiate dependence. Patient with substance use history of: Xanax 20-80mg Po daily since age 11, heroin 1-2 gram iv/snorted daily since january 2011, fentanyl 50-75mg smoked when available for one year, oxycodone 80mg 2 tabs when available, Percocet few tabs when available. patient with past medical history of: surgery to right shoulder, depression, seizure r/t withdrawal. Patient was placed on a 7 day phenobarbital taper, and 5 day Subutex taper. Patient received awake, alert and oriented x4, educated regarding plan of care for the day and medication with regimen with good verbal understanding. safety measures in place. call light with in reach, will construes to monitor closely.
[2017-02-17 08:07] VITALS: BP 164/97
[2017-02-17] MEDS: SERTRALINE HCL 100 MG TABLET PO SCH ×2 (08:28→20:18)
[2017-02-17] MEDS: DICYCLOMINE HCL 20 MG TABLET PO SCH ×3 (08:28→20:17)
[2017-02-17] MEDS: MULTIVITAMINS,THERAPEUTIC TABLET PO SCH (08:28)
[2017-02-17] MEDS: PREGABALIN 100 MG CAPSULE PO SCH ×2 (08:29→20:18)
[2017-02-17] MEDS: CLONIDINE HCL 0.1 MG TABLET PO PRN (08:29)
[2017-02-17] MEDS: PREGABALIN 25 MG CAPSULE PO SCH (08:29)
[2017-02-17] MEDS: PHENOBARBITAL 60 MG TABLET PO SCH ×2 (08:29→20:19)
[2017-02-17] MEDS: BACLOFEN 10 MG TABLET PO PRN ×2 (08:33→20:18)
--- NOTE | 2017-02-17 08:33 | NUR ---
PRN BACLOFEN/CLONIDINE Patient c/o muscle aches and noted with bp: 164/97, patient was administered baclofen as ordered and clonidine as ordered for increase BP, will monitor effectiveness of medications.
[2017-02-17] MEDS ORDERED: BUPRENORPHINE HCL 2 MG TAB.SUBL SL SCH ×2 (09:00)
--- NOTE | 2017-02-17 09:33 | NUR ---
PRN BACLOFEN/CLONIDINE REASSESSMENT Medications were effecitve, patient reports no muscle aches, current pain level is 0/10. Patients blood pressure decreased, current BP: 158/88, will continue to monitor.
[2017-02-17 14:00] VITALS: BP 140/75
[2017-02-17] MEDS: BUPRENORPHINE HCL 2 MG TAB.SUBL SL SCH ×2 (14:16→20:18)
[2017-02-17 17:29] VITALS: BP 130/73
--- NOTE | 2017-02-17 18:56 | NUR ---
END OF SHIFT Patient alert and oriented x4, compliant with therapeutic plan of care, vital signs with in normal limits during shift. Patient continues on phenobarbital taper and Subutex taper as ordered, well tolerated, no ASE. Patient with admitting Dx: opiate/bzo dependence. 0900 assessment patient presented with: c/o chills, mild bone and joint aches, nasal stuffiness, tremors that can be felt but not seen, barely sweating and mild anxiety with cow score of: 5 and ciwa score of: 3; 1300 assessment patient presented with: : c/o chills, mild bone and joint aches, nasal stuffiness, tremors that can be felt but not seen, barely sweating and mild anxiety with cow score of: 5 and ciwa score of: 3; 1700 assessment patient presented with: : c/o chills, mild bone and joint aches, nasal stuffiness, tremors that can be felt but not seen, barely sweating and mild anxiety with cow score of: 5 and ciwa score of: 3. Patient encouraged to attend group therapies/sessions to learn new coping skills to prevent relapse, denies any SI/HI. Patient was administered PRN: baclofen and clonidine at 0833 medications were effective one hour post administration. continues on phenobarbital taper and Subutex taper,well tolerated. Patient encouraged increase in PO fluid intake as tolerated. Patients abdomen is soft and non distended, bowel sounds heard in all quadrats. no episodes of N/V/D noted. Safety measures in place. call light with in reach, patient endorsed to cnc machinist 2nd shift nurse, all pertinent information discussed.
--- NOTE | 2017-02-17 19:15 | NUR ---
START OF SHIFT NOTE: Patient is a 26 y/o male admitted on 02/11/17 for Opiate and Benzo dependence. Patient reported using Xanax 20-80mg Po daily since age 11, heroin 1-2 gram iv/snorted daily since january 2011, fentanyl 50-75mg smoked when available for one year, oxycodone 80mg 2 tabs when available, Percocet few tabs when available. Patient with past medical history of surgery to right shoulder, depression, seizure r/t withdrawal. Patient is on a regular diet with no known food and drug allergies. Full Code status. Fall & Seizure precaution. Patient was placed on a 7 day phenobarbital taper, and 5 day Subutex taper and tolerating well. Patient is alert & oriented x4. No shortness of breath noted. Respiration even & unlabored. Abdomen soft & non-distended. Bowel sounds active in all four quadrants. No nausea/vomiting noted. Patient complains of 6/10 body aches and 8/10 headache, sweating & chills. No hallucinations noted. Patient denies SI/HI. No hand tremors noted. Safety precautions are in place. Bed locked in lowest position. Both side rails up. Call light within pt's reach. Will continue to monitor patient. Addendum: 02/18/17 at 0308 by PARAG ROBERTS RN Pt uses CPAP at night with settings at CPAP 4, FiO2 at 35%.
[2017-02-17] MEDS: IBUPROFEN 600 MG TABLET PO PRN (20:18)
[2017-02-17] MEDS: CLONIDINE HCL 0.1 MG TABLET PO SCH (20:18)
--- NOTE | 2017-02-17 20:18 | NUR ---
PRN Baclofen & Motrin Patient complains of 6/10 body aches and 8/10 headache. Patient noted with facial grimacing. Patient lying in bed and appears restless. PRN Baclofen and Motrin given as ordered. Will reassess for effectiveness of medication.
[2017-02-17] MEDS: QUETIAPINE FUMARATE 25 MG TABLET PO SCH (20:19)
--- NOTE | 2017-02-17 21:18 | NUR ---
PRN Reassessment PRN medication effective. Patient verbalized relief from body aches and headache. Patient appears more calm & comfortable. No shortness of breath noted. Will continue to monitor patient.
--- NOTE | 2017-02-17 23:30 | NUR ---
Patient placed on CPAP at this time per RN and/or patient request. Settings: CPAP 4, FIO2-35%. No respiratory distress noted at this time; Patient appears to be tolerating CPAP settings well at this time. Patient to be monitored throughout the shift. Respironics V60 alarm parameters have been checked and remain audible.
--- NOTE | 2017-02-18 | NUR ---
Vitals/Cows/Ciwa deferred Patient refused vitals at this time. Patient asleep in bed. On CPAP machine and tolerating well. No shortness of breath noted. respiration even & unlabored. Safety precautions are in place. Will continue to monitor patient.
--- NOTE | 2017-02-18 07:01 | NUR ---
END OF SHIFT NOTE: Patient is a 26 y/o male admitted on 02/11/17 for Opiate and Benzo dependence. Patient reported using Xanax 20-80mg Po daily since age 11, heroin 1-2 gram iv/snorted daily since january 2011, fentanyl 50-75mg smoked when available for one year, oxycodone 80mg 2 tabs when available, Percocet few tabs when available. Patient with past medical history of surgery to right shoulder, depression, seizure r/t withdrawal. Patient is on a regular diet with no known food and drug allergies. Full Code status. Fall & Seizure precaution. Patient was placed on a 7 day phenobarbital taper, and 5 day Subutex taper and tolerating well. Patient uses CPAP at night with settings of CPAP 4 and Fio2 @ 35%. Last COWS is 5 CIWA 6 noted. Pt was given PRN Baclofen and Motrin and were effective. Pt remained compliant with treatment plan. Pt attends groups and activities. Pt remained stable and vitals remains WNL. Pt slept for a total of 6 hours hours. Pt consumed 1400ml of fluids. Voided 3x with no bowel movement. All needs attended & met. Safety precautions are in place. Will endorse pt to day shift nurse.
--- NOTE | 2017-02-18 07:20 | NUR ---
Start of shift note; Received report from night nurse. Patient is a 26 year old male, admitted on 02/11/17 for Benzo and Opiate Dependence. Pt is full code regular diet on fall and seizure precautions, denies any food or drug allergies. Patient is currently receiving Phenobarbital and Subutex taper tolerating well. Skin intact. Patient reported Past Medical History of Surgery to right shoulder x3, Depression, Seizure d/t withdrawal. Patient is on CPAP during nights and O2 2L/min via NC during the day for SPO2 less than 90%. Patient denies suicidal ideations. Last COWS was a 5 and last CIWA was a 6. Pt slept a total of 6 hours last night. All safety measures in place, call light within reach, bed in lowest locked position, will continue to monitor patient.
[2017-02-18 08:00] VITALS: BP 107/68
[2017-02-18 08:13] LABS: CALCIUM 8.8 mg/dL (8.5-10.1); CREATININE 0.9 mg/dL (0.6-1.3); MAGNESIUM 1.9 mg/dL (1.8-2.4); POTASSIUM 4.4 mmol/L (3.5-5.1)
[2017-02-18] MEDS: DICYCLOMINE HCL 20 MG TABLET PO SCH ×3 (08:22→21:00)
[2017-02-18] MEDS: BUPRENORPHINE HCL 2 MG TAB.SUBL SL SCH ×3 (08:22→20:26)
[2017-02-18] MEDS: SERTRALINE HCL 100 MG TABLET PO SCH ×2 (08:22→20:27)
[2017-02-18] MEDS: PREGABALIN 100 MG CAPSULE PO SCH ×2 (08:22→20:28)
[2017-02-18] MEDS: MULTIVITAMINS,THERAPEUTIC TABLET PO SCH (08:22)
[2017-02-18] MEDS: CLONIDINE HCL 0.1 MG TABLET PO SCH ×3 (08:23→20:28)
[2017-02-18] MEDS: IBUPROFEN 600 MG TABLET PO PRN (08:33)
[2017-02-18] MEDS: BACLOFEN 10 MG TABLET PO PRN ×2 (08:33→14:46)
--- NOTE | 2017-02-18 08:33 | NUR ---
PRN medications; Patient is complaining of muscle aches/spams on BLE and Headache/generalized pain rated 6/10. PRN Ibuprofen 600mg PO given for pain and PRN Baclofen 20mg PO PRN for muscle spams. Will closely monitor patient.
--- NOTE | 2017-02-18 09:33 | NUR ---
Re-assessment; Patient denies pain at this time and stated decreased muscle spasms. Will continue to monitor patient.
[2017-02-18] MEDS: PHENOBARBITAL 60 MG TABLET PO SCH ×2 (11:10→20:27)
[2017-02-18 12:00] VITALS: BP 113/79
--- NOTE | 2017-02-18 14:46 | NUR ---
PRN medication; Patient is complaining of muscle spasms, PRN Baclofen 20mg PO PRN given. Will continue to monitor patient.
--- NOTE | 2017-02-18 15:46 | NUR ---
Re-assessment; Patient stated decrease in muscle spasms, PRN medication is effective.
[2017-02-18 16:00] VITALS: BP 127/79
--- NOTE | 2017-02-18 18:05 | NUR ---
End of shift; Patient is AOX4. Patient is a 26 year old male, admitted on 02/11/17 for Benzo and Opiate Dependence. Pt is full code regular diet on fall and seizure precautions, denies any food or drug allergies. Patient is currently receiving Phenobarbital and Subutex taper tolerating well. Skin intact. Patient reported Past Medical History of Surgery to right shoulder x3, Depression, Seizure d/t withdrawal. Patient denies suicidal ideations. All safety measures in place, call light within reach. Patient remained compliant with treatment plan. Medications were effective in reducing withdrawal symptoms. Met all needs.
--- NOTE | 2017-02-18 19:05 | NUR ---
START OF SHIFT Pt endorsed by day shift nurse. SBAR report received. Patient is a 26 years old male admitted to [facility] on 02/11/2017 for Benzo: Xanax 20-80 mg PO daily during 15 years; Opioid: Heroin via IV or snorting daily 1-2 grams during 7 years. Last used of 0.5 gram on 02/11/2017 at 13:00; Oxycodone PO 1-2 tabs of 80 mg" since 6th grade when available" Fentanyl smokes" 50-75 mcg daily last year and when available" and last was " about one month ago"; Percocet PO since" 6th grade" few tabs "when available". W 18 : "the strongest opiate there is" 1 tab PO "when available", and last was 3 weeks ago. Patient on ordered 7 days Phenobarbital taper since 02/11/18, and Subutex Taper started on 02/12/2017.Patient is tolerating well. PMH: Depression Seizures r/t withdrawal; and History of Surgery to Right Shoulder x 3. Patient denies SI/HI. Upon assessment at 19:00 pt's CIWA 3; COWS 3: pt's anxiety, c/o mild headache: 2/10, bones and muscle aches: 3/10. Patient has tremors, that can felt, sweating. Breathing is unlabored and even. Lungs Sound are clear bilaterally. Patient denied SOB and chest pain. Patient said that he has "apnea when sleeping". Respiratory treatment / CPAP at night ordered for patient . Heart rate is regular. BS is active in all x4 quadrants. Skin is intact, warm and moist by touch. No PRN Medication given during day shift. Patient participated in groups and activities. Safety measures on place by hospital policy: Call light within reach; Bed in lowest position and locked; side rails up x2. Will continue to monitor.
[2017-02-18 20:00] VITALS: BP 130/89
[2017-02-18] MEDS: QUETIAPINE FUMARATE 25 MG TABLET PO SCH (20:27)
[2017-02-19] VITALS: BP 108/56
--- NOTE | 2017-02-19 03:00 | NUR ---
PLACED PATIENT ON CPAP PER RN REQUEST. PATIENT AWAKE AND ALERT. TOLERATING CPAP AT THIS TIME. NO DISTRESS NOTED.
[2017-02-19 04:00] VITALS: BP 130/85
--- NOTE | 2017-02-19 07:19 | NUR ---
END OF SHIFT Pt's endorsed to day shift nurse. SBAR report given. Patient is a 26 years old male admitted to [facility] on 02/11/2017 for Benzo: Xanax 20-80 mg PO daily during 15 years; Opioid: Heroin via IV or snorting daily 1-2 grams during 7 years. Last used of 0.5 gram on 02/11/2017 at 13:00; Oxycodone PO 1-2 tabs of 80 mg" since 6th grade when available" Fentanyl smokes" 50-75 mcg daily last year and when available" and last was " about one month ago"; Percocet PO since" 6th grade" few tabs "when available". W 18 : "the strongest opiate there is" 1 tab PO "when available", and last was 3 weeks ago. Patient on ordered 7 days Phenobarbital taper since 02/11/18, and Subutex Taper started on 02/12/2017.Patient is tolerating well. PMH: Depression Seizures r/t withdrawal; and History of Surgery to Right Shoulder x 3. Patient denies SI/HI. CIWA 7; COWS 6: pt's anxiety, nervousness, c/o mild headache, bones and muscle aches 4/10. Patient has tremors, that can felt, sweating. Respiratory treatment / CPAP at night given as ordered by RT . Skin is intact, warm and moist by touch. Patient slept 7 hours; Intake 500 ml; Voided x2. Patient participated in groups and activities. Safety measures on place by hospital policy: Call light within reach; Bed in lowest position and locked; side rails up x2.
--- NOTE | 2017-02-19 07:35 | NUR ---
START OF SHIFT NOTE: Received report from night club manager nurse. Patient is a 26 year old male, admitted on 02/11/17 for Benzo and Opiate Dependence. Pt is on a Phenobarb and Subutex tapers. Tolerating well. Pt is alert and oriented X4. Color good, skin warm and dry. Respirations even and unlabored. Safety precautions observed. Call light within reach. Will continue to monitor.
[2017-02-19 08:00] VITALS: BP 139/83
[2017-02-19] MEDS: SERTRALINE HCL 100 MG TABLET PO SCH ×2 (08:45→20:33)
[2017-02-19] MEDS: MULTIVITAMINS,THERAPEUTIC TABLET PO SCH (08:45)
[2017-02-19] MEDS: DICYCLOMINE HCL 20 MG TABLET PO SCH ×3 (08:46→20:34)
[2017-02-19] MEDS: CLONIDINE HCL 0.1 MG TABLET PO SCH ×3 (08:46→20:33)
[2017-02-19] MEDS: CHOLECALCIFEROL 1,000 UNIT TABLET PO SCH (08:46)
[2017-02-19] MEDS: PREGABALIN 100 MG CAPSULE PO SCH ×2 (08:46→20:32)
--- NOTE | 2017-02-19 08:51 | NUR ---
VSS COWS 5 CIWA 8 Pt c/o muscle aches and anxiety. Baclofen 20mg po prn given for muscle aches.
[2017-02-19] MEDS: BACLOFEN 10 MG TABLET PO PRN (08:53)
[2017-02-19] MEDS ORDERED: BUPRENORPHINE HCL 2 MG TAB.SUBL SL SCH (09:00)
--- NOTE | 2017-02-19 10:00 | NUR ---
Pt states Baclofen prn helped with muscle aches.
[2017-02-19] MEDS: PHENOBARBITAL 60 MG TABLET PO SCH ×2 (11:29→20:34)
--- NOTE | 2017-02-19 11:30 | NUR ---
Dr Smith extended Phenobarb taper for 24hours. 1st dose @ 8003
[2017-02-19 12:40] VITALS: BP 135/77
--- NOTE | 2017-02-19 13:55 | NUR ---
Pt c/o bilateral ankle swelling and pain 2-3+ pitting edema noted. Dr. Smith notified and ultrasound ordered.
--- NOTE | 2017-02-19 14:30 | NUR ---
Ultrasound of both ankles done. No evidence of DVT's
[2017-02-19 18:33] VITALS: BP 134/74
--- NOTE | 2017-02-19 18:58 | NUR ---
END OF SHIFT NOTES: Report given to retail shift manager nurse. Patient is a 26 year old male, admitted on 02/11/17 for Benzo and Opiate Dependence. Pt is on a Phenobarb taper. Taper extended 24 hours. Tolerating well. Pt is alert and oriented X4. Color good, skin warm and dry. Respirations even and unlabored. Pt c/o bilateral ankle swelling and pain 2-3+ pitting edema noted. Ultrasound performed which was negative for DVT's. Patient received Baclofen 20mg po prn @ 0900 for muscle aches with good results. Vital signs have remained stable throughout shift. Last COWS 5 CIWA 8 @ 1700. Safety precautions observed. Call light within reach.
--- NOTE | 2017-02-19 19:00 | NUR ---
START OF SHIFT NOTE Pt endorsed by day shift nurse. SBAR report received. Patient is a 26 years old male admitted to [facility] on 02/11/2017 for Benzo and Opioid dependence placed on 7 days Phenobarbital taper on 02/11/18. Patient remains compliant with medication and diet regime. PMH: Depression; Seizures r/t withdrawal; and History of Surgery to Right Shoulder x 3. Patient denies SI/HI. Upon assessment at 19:00 patient is alert and oriented x4, speech is clear. CIWA 5; COWS 5 : pt's anxiety, depression; restlessness.Patient c/o mild headache: 2/10, bones and muscle aches: 6/10. VS: T:97'8; BP: 127/86; RR: 18; O2Sat: 96%; Patient c/o pain in the Left and Right legs: 6/10. Patient has edema on his the left leg +2 and right leg +3. Safety measures on place by hospital policy: Call light within reach; Bed in lowest position and locked; side rails up x2. Will continue to monitor.
[2017-02-19 20:00] VITALS: BP 127/86
--- NOTE | 2017-02-19 20:25 | NUR ---
PRN Motrin PO Administration Patient c/o pain 6/10 in the Right and Left Legs: Pitting Edema +2 on the LLE and pitting Edema +3 on the RLE. PRN Motrin PO discussed with patient. Education provided for actions adverse reactions, and side effects of the Motrin. PRN Motrin PO 's administrated as ordered. Patient tolerated well. Safety measures on place by hospital policy: Call light within reach; Bed in lowest position and locked; side rails up x2. Will continue to monitor.
[2017-02-19] MEDS: IBUPROFEN 600 MG TABLET PO PRN (20:32)
[2017-02-19] MEDS: QUETIAPINE FUMARATE 25 MG TABLET PO SCH (20:35)
--- NOTE | 2017-02-19 21:25 | NUR ---
REASSESSMENT Patient is sleeping. Breathing is unlabored and even. RR: 15. PRN Motrin's effective.Safety measures on place by hospital policy: Call light within reach; Bed in lowest position and locked; side rails up x2. Will continue to monitor.
--- NOTE | 2017-02-20 | NUR ---
VS REFUSED AND CIWA/COWS DEFERRED Patient refused to be woken up for 00:00 VS. CIWA/COWS deferred d/t patient sleeping to assess while patient is awake. Safety measures on place by hospital policy: Call light within reach; Bed in lowest position and locked; side rails up x2. Will continue to monitor.
[2017-02-20 04:00] VITALS: BP 135/75
--- NOTE | 2017-02-20 07:01 | NUR ---
END OF SHIFT NOTE Patient endorsed to day shift nurse. SBAR report given. Patient is a 26 years old male admitted to [facility] on 02/11/2017 for Benzo and Opioid dependence placed on 7 days Phenobarbital taper since 02/11/18. NKA; Regular Diet; Full Code, Fall and Seizures precautions. Patient denies SI/HI. CIWA decreased from 5 to 3; COWS decreased from 5 to 4. During shift, patient presented with anxiety, agitation; nervousness; depression; restlessness, sweating; bones and muscle aches. Patient's Edema left leg +2, and right leg +3. PRN Motrin PO administrated at 20:25 for bilateral legs pain 04/06, was effective. VS: T:97'6; BP: 135/75; HR 62; RR: 14; O2Sat: 97%. Pain level "in both thighs" 02/04. Patient remains compliant with medications and treatment regimen. Patient slept 8 hours; Intake: 1,796 ml; Voided x2; BM x1. Patient compliant with medications regimen. Safety measures on place by hospital policy: Call light within reach; Bed in lowest position and locked; side rails up x2.
--- NOTE | 2017-02-20 07:50 | NUR ---
START OF SHIFT NOTE Received report from night nurse, 26 year old male admitted for Opiate and Benzo dependence. NKA/Regular diet/ Full Code status. Fall & Seizure precaution. Patient reported using Xanax 20-80mg Po daily since age 11, heroin 1-2 gram iv/snorted daily since january 2011, fentanyl 50-75mg smoked when available for one year, oxycodone 80mg 2 tabs when available, Percocet few tabs when available. Patient with past medical history of surgery to right shoulder, depression, seizure r/t withdrawal. Pt was placed on a 7 day phenobarbital taper, and 5 day Subutex taper and tolerating well. Pt received PRN Motrin for pain effective, pt slept for 8 hours, Last CIWA-3, COWS-4. Pt has bilateral edema. Upon assessment pt is alert & oriented x4. No shortness of breath noted. Respiration even & unlabored. Abdomen soft & non-distended. Bowel sounds active in all four quadrants. No nausea/vomiting noted. Patient denies SI/HI. No hand tremors noted. Safety measures in place, call light within reach.Will cont to monitor.
[2017-02-20 08:00] VITALS: BP 133/104
[2017-02-20] MEDS: CHOLECALCIFEROL 1,000 UNIT TABLET PO SCH (08:31)
[2017-02-20] MEDS: SERTRALINE HCL 100 MG TABLET PO SCH ×2 (08:31→20:26)
[2017-02-20] MEDS: PREGABALIN 100 MG CAPSULE PO SCH ×2 (08:31→20:25)
[2017-02-20] MEDS: DICYCLOMINE HCL 20 MG TABLET PO SCH ×3 (08:31→20:27)
[2017-02-20] MEDS: MULTIVITAMINS,THERAPEUTIC TABLET PO SCH (08:31)
[2017-02-20] MEDS: CLONIDINE HCL 0.1 MG TABLET PO SCH ×3 (08:34→20:27)
[2017-02-20] MEDS: BACLOFEN 10 MG TABLET PO PRN (08:39)
--- NOTE | 2017-02-20 08:39 | NUR ---
PRN MEDICATION Pt is complaining of muscle spams on BLE PRN Baclofen 20mg PO for muscle spams. Will cont to monitor.
--- NOTE | 2017-02-20 09:39 | NUR ---
REASSESSMENT Upon reassessment Pt stated decrease in muscle spasms, PRN medication is effective.
[2017-02-20 12:00] VITALS: BP 120/68
[2017-02-20 16:00] VITALS: BP 138/88
--- NOTE | 2017-02-20 18:59 | NUR ---
START OF SHIFT NOTE Patient endorsed by day shift nurse. SBAR report received. Patient is a 26 years old male admitted to [facility] on 02/11/2017 for Benzo and Opioid dependence placed on 7 days Phenobarbital taper and 5 days Subutex taper. Patient tolerating the taper well. Patient remains compliant with medication and diet regime. Substance Use History: Xanax PO"20-80 mg /daily 15 years"; Heroin (snort/IV) 1-2 grams /daily , 7 years. Last used of 0.5 gram on 02/11/2017 at 13:00; Oxycodone PO 1-2 tabs of 80 mg" since 6th grade when available" .Fentanyl smokes" 50-75 mcg daily last year and when available" and last was " about one month ago"; Percocet PO since" 6th grade" few tabs "when available". W 18 (PO) : "the strongest opiate there is" 1 tab "when available", and last was 3 weeks ago. PMH: Depression; Seizures r/t withdrawal; and History of Surgery to Right Shoulder x 3. Patient denies SI/HI. Upon assessment at 19:00 patient is alert and oriented x4, speech is clear. CIWA 4; COWS 3 : pt's anxiety, depression; tremors, that can felt; bones and muscle aches: 10. VS: T:97'7; BP: 127/73; RR: 18; O2Sat: 98%. Breathing is unlabored and even. Lungs Sound are clear bilaterally upon auscultation. Patient denied SOB and chest pain. Heart rate is regular. Patient edema the left leg decreased from +2 to+1 and right leg edema decreased from +3 to +2. BS is active in all x4 quadrants. Abdomen is soft and non-tender. Skin is intact, warm and dry by touch. Patient will discharging tomorrow. Ordered UDS test. Safety measures on place by hospital policy: Call light within reach; Bed in lowest position and locked; side rails up x2. Will continue to monitor. Safety measures on place by hospital policy: Call light within reach; Bed in lowest position and locked; side rails up x2. Will continue to monitor.
--- NOTE | 2017-02-20 18:59 | NUR ---
END OF SHIFT NOTE Gave report to night nurse, 26 year old male admitted for Opiate and Benzo dependence. NKA/Regular diet/ Full Code status. Fall & Seizure precaution. Patient reported using Xanax 20-80mg Po daily since age 11, heroin 1-2 gram iv/snorted daily since january 2011, fentanyl 50-75mg smoked when available for one year, oxycodone 80mg 2 tabs when available, Percocet few tabs when available. Patient with past medical history of surgery to right shoulder, depression, seizure r/t withdrawal. Pt was placed on a 7 day phenobarbital taper, and 5 day Subutex taper and tolerating well. During shift pt received PRN Baclofen for pain effective. Pt scheduled to be discharged in AM. Last CIWA-2, COWS-2. Pt's total intake 1578ml, Voided x4. Vital signs stable. Bilateral lower extremities edema still noted, skin intact to the sites. Safety measures in place, call light within reach. Pt endorsed to night nurse in stable condition.
[2017-02-20 20:00] VITALS: BP 127/73
[2017-02-20] MEDS: IBUPROFEN 600 MG TABLET PO PRN (20:27)
[2017-02-20] MEDS: QUETIAPINE FUMARATE 25 MG TABLET PO SCH (20:27)
--- NOTE | 2017-02-20 20:27 | NUR ---
PRN Motrin PO Administration Patient c/o bones and muscles aches: pain level 5/10. Patient 's assessed. PRN Motrin PO discussed with patient. Education provided for actions adverse reactions, and side effects of the Motrin. PRN Motrin PO 's administrated as ordered. Patient tolerated well. Safety measures on place by hospital policy: Call light within reach; Bed in lowest position and locked; side rails up x2. Will continue to monitor.
[2017-02-20] MEDS ORDERED: HYDR-3895 PO (21:39)
[2017-02-20] MEDS ORDERED: CLON0.1T14 PO (21:39)
[2017-02-20] MEDS ORDERED: Ibuprofen PO (21:39)
[2017-02-20] MEDS ORDERED: Baclofen PO (21:39)
[2017-02-20] MEDS ORDERED: PREG100C PO (21:39)
[2017-02-20] MEDS ORDERED: DICY20TA28 PO (21:39)
[2017-02-20] MEDS ORDERED: CHOL10002 PO (21:39)
[2017-02-21] VITALS: BP 131/71
[2017-02-21 04:00] VITALS: BP 124/67
[2017-02-21 05:51] LABS: *AMPHETAMINE, URINE NEGATIVE (NEGATIVE); *BARBITURATE, URINE POSITIVE (NEGATIVE); *CANNABINOID, URINE NEGATIVE (NEGATIVE); *COCCAINE, URINE NEGATIVE (NEGATIVE); *OPIATE, URINE NEGATIVE (NEGATIVE); *PHENCYCLIDINE SCREEN,URINE NEGATIVE (NEGATIVE)
--- NOTE | 2017-02-21 07:09 | NUR ---
END OF SHIFT NOTE Patient endorsed to day shift nurse. SBAR report given. Patient is a 26 years old male admitted to [facility] on 02/11/2017 for Benzo/Opioid Dependence placed on 7 days Phenobarbital taper since 02/11/18. NKA; Regular Diet; Full Code, Fall and Seizures precautions. Patient denies SI/HI. CIWA decreased from 4 to 2; COWS decreased from 4 to 3. During shift, patient presented with anxiety, agitation; nervousness; depression; restlessness, sweating; bones and muscle aches. Patient's Edema of left leg decreased from +2 to +1, and Edema of right leg decreased from +3 to +2. Leg elevation was helpful. PRN Motrin PO was effective. Patient pain level decreased from 5 to 2. Patient remains compliant with treatment plan. VS WNL. Patient slept 9 hours; Intake: 300 ml; Voided x2; BM x1. Patient compliant with medications regimen. Safety measures on place by hospital policy: Call light within reach; Bed in lowest position and locked; side rails up x2.
--- NOTE | 2017-02-21 07:49 | NUR ---
BEGINNING OF SHIFT Patient endorsement report received from maintenance supervisor 2nd shift nurse, all pertinent information discussed. patient is a 26 year old male admitted on 02/11/2017 with admitting Dx: bzo/opiate dependence. Patient with substance use history of: Xanax 20-80mg Po daily since age 11, heroin 1-2 gram iv/snorted daily since january 2011, fentanyl 50-75mg smoked when available for one year, oxycodone 80mg 2 tabs when available, Percocet few tabs when available. patient with past medical history of: surgery to right shoulder, depression, seizure r/t withdrawal. Patient was placed on a phenobarbital taper, and Subutex taper, Completed both tapers and is scheduled for discharge today, as per maintenance supervisor 2nd shift patient with last cow score of: 3 and last ciwa score of: 2, and slept for 9 hours. Patient in bed with eyes closed respirations even and unlabored, received PRN: Motrin, per maintenance supervisor 2nd shift medication effective, will educated regarding plan of care for the day and medication with regimen, and discharge instructions. with good verbal understanding. safety measures in place. call light with in reach, will construes to monitor closely.
[2017-02-21 08:12] VITALS: BP 124/67
[2017-02-21 09:19] VITALS: BP 124/67
[2017-02-21] MEDS: PREGABALIN 100 MG CAPSULE PO SCH (09:19)
[2017-02-21] MEDS: MULTIVITAMINS,THERAPEUTIC TABLET PO SCH (09:19)
[2017-02-21] MEDS: SERTRALINE HCL 100 MG TABLET PO SCH (09:19)
[2017-02-21] MEDS: CLONIDINE HCL 0.1 MG TABLET PO SCH (09:19)
[2017-02-21] MEDS: CHOLECALCIFEROL 1,000 UNIT TABLET PO SCH (09:19)
[2017-02-21] MEDS: DICYCLOMINE HCL 20 MG TABLET PO SCH (09:19)
[2017-02-21] MEDS: BACLOFEN 10 MG TABLET PO PRN (09:26)
--- NOTE | 2017-02-21 09:50 | NUR ---
DISCHARGE Patient discharged at 0950 prior to discharge patient educated regarding all discharge instructions and teaching with good verbal understanding. patient noted self motivated towards sobriety. patients vital signs were stable, with no s/sx of withdrawal patient with last cow score of: 0 and last ciwa score of: 0. Patient was administered baclofen at 0926 prior to discharge for muscle aches, ok to administer per MD. patient off the unit at 0950 in stable condition.
[2017-02-21 14:07] LABS: *BENZODIAZEPINES Positive (.); *CANNABINOID (THC) Positive (.); *CODEINE Negative (Cutoff=300); *HYDROMORPHONE Negative (Cutoff=300); *NORDIAZEPAM Negative (Cutoff=300); *OPIATES Positive ng/mL (Cutoff=300); *OXAZEPAM Negative (Cutoff=300)
== END 2017-02-21 09:50 | disposition other institution (70) | DRG 895 ==
LOC: SRC 02-11 15:31
PROVIDERS: ADMIT Internal Medicine; ATTEND Internal Medicine
PROC: HZ2ZZZZ Detoxification Services for Substance Abuse Treatment (ICD-10-PCS; principal; 2017-02-11)
PROC: HZ31ZZZ Individual Counseling for Substance Abuse Treatment, Behavioral (ICD-10-PCS; 2017-02-14)
PROC: HZ41ZZZ Group Counseling for Substance Abuse Treatment, Behavioral (ICD-10-PCS; 2017-02-14)
DX: F11.23 Opioid dependence with withdrawal (principal); F33.2 Major depressive disorder, recurrent severe without psychotic features; E87.1 Hypo-osmolality and hyponatremia; R60.0 Localized edema; F13.239 Sedative, hypnotic or anxiolytic dependence with withdrawal, unspecified; Z91.89 Other specified personal risk factors, not elsewhere classified; F90.9 Attention-deficit hyperactivity disorder, unspecified type; F40.01 Agoraphobia with panic disorder; G47.33 Obstructive sleep apnea (adult) (pediatric); Z91.19 Patient's noncompliance with other medical treatment and regimen; F12.90 Cannabis use, unspecified, uncomplicated; F17.210 Nicotine dependence, cigarettes, uncomplicated; E83.42 Hypomagnesemia; E86.1 Hypovolemia; E87.8 Other disorders of electrolyte and fluid balance, not elsewhere classified; E83.51 Hypocalcemia; I10 Essential (primary) hypertension; E55.9 Vitamin D deficiency, unspecified; Z79.899 Other long term (current) drug therapy; Z82.49 Family history of ischemic heart disease and other diseases of the circulatory system; Z83.3 Family history of diabetes mellitus; Z81.8 Family history of other mental and behavioral disorders; D64.9 Anemia, unspecified; E66.3 Overweight; Z68.35 Body mass index [BMI] 35.0-35.9, adult
CPT/HCPCS: 36415; 70030-TC; 80184; 80307; 80346; 80349; 80361; 82306; 82330; 82746; 83550; 83735; 84443; 85025; 86592; 86705; 86803; 87340; 87806; 93005; 94660; G6040-TC; J8499; Q0162